=== PATIENT | male | born 1930 | race Caucasian/White ===

== ENCOUNTER → 2018-06-14 | Outpatient (CLI) | payer MEDICARE ==
[2015-03-25 07:42] VITALS: BP 135/62
[~2018-06-14] MED LIST: Aspirin PO; FINA5TAB4 PO; SIMV10TA PO
--- NOTE | 2018-06-14 11:42 | KCIC ---
Two-view right hip dated 06/14/2018. No comparison available. Clinical data indication: Pain. FINDINGS: 2 views right hip show normal bony alignment. No displaced fracture. Moderate to severe hypertrophic changes of the right hip joint with joint space narrowing and subchondral cystic change. No periostitis or bone destruction. No evidence of fracture. Diffuse vascular calcinosis. IMPRESSION: 1. No acute radiographic abnormality. 2. 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 Electronically signed by: Yuan Wright MD (06/14/2018 11:39 AM) [facility]
== END | disposition home or self-care (01) ==
LOC: KCIC 09:52
PROVIDERS: ATTEND Family Medicine
DX: M16.11 Unilateral primary osteoarthritis, right hip (principal)
CPT/HCPCS: 73502

== ENCOUNTER → 2018-08-05 | Outpatient (CLI) | payer MEDICARE ==
[2015-03-25 07:42] VITALS: BP 135/62
[~2018-08-05] MED LIST changes: +ACET500T68 PO; +ASCO10002 PO; +ASPI-630 PO; +BRIM5DRO3 OS; +DORZ10DR6 OU; +LATA2.5D3 OS; +MELO15TA23 PO; +MULT-658 PO; +VIT1CAPS12 PO
[2018-08-05 09:10] LABS: BASO % 1 % (0-3); EOS # 0.6 x10^3/uL (0.0-0.7); EOS % 7 % (0-3); HEMATOCRIT 43.1 % (39.0-53.0); LYMPH # 1.1 x10^3/uL (1.0-4.8); LYMPH % 12 % (24-48); MEAN CORPUSCULAR HEMOGLOBIN 33 pg (25-35); MEAN CORPUSCULAR HGB CONC 35 g/dL (31-37); MEAN CORPUSCULAR VOLUME 95 fL (79-100); MONO # 0.9 x10^3/uL (0.0-1.1); MONO % 10 % (0-9); NEUT # 6.5 x10^3uL (1.8-7.7); NEUT % 71 % (31-73); PLATELET COUNT 261 x10^3/uL (140-400); RED BLOOD COUNT 4.55 x10^6/uL (4.30-5.70); RED CELL DISTRIBUTION WIDTH 13.4 % (11.5-14.5); WHITE BLOOD COUNT 9.1 x10^3/uL (4.0-11.0)
[2018-08-05 09:20] LABS: ALBUMIN 3.2 g/dL (3.4-5.0); CALCIUM 9.2 mg/dL (8.5-10.1); CREATININE 1.2 mg/dL (0.7-1.3); GFR 57.4; POTASSIUM 4.4 mmol/L (3.5-5.1); PROTHROMBIN TIME PATIENT 14.5 SEC (11.7-14.0)
--- NOTE | 2018-08-05 12:20 | EKG ---
[facility] [address] [place] [address] Test Date: 2018-08-05 Test Time: 12:16:31 Pat Name: TALITA WLOF Department: Patient ID: [id number] Room: Gender: M Environmental Technician: [facility] : 1930 Requested By: TOO BURNS Order Number: [id number] Reading MD: Joshua Kraus Measurements Intervals [place] Rate: 124 P: RI: QRS: 27 QRSD: 78 T: -59 QT: 338 QTc: 490 Interpretive Statements ATRIAL FIBRILLATION,RATE [address]-T WAVE CHANGES Electronically Signed On 08-07-2018 10:46:57 THERMOGRAPH OPERATOR by Joshua Kraus
--- NOTE | 2018-08-05 13:34 | RAD ---
EXAM: Chest, 2 views. HISTORY: Arthroplasty. COMPARISON: 07/09/2018 FINDINGS: 2 views of the chest are obtained. There is no infiltrate, pleural effusion or pneumothorax. The heart is normal in size. There are healed rib fractures. There is a small hiatal hernia. There are calcified granulomas. IMPRESSION: No acute pulmonary finding. Electronically signed by: Gloria Carter MD (08/05/2018 1:30 PM) [place] [id number]
[2018-08-05 14:13] LABS: BILIRUBIN,URINE NEGATIVE (NEG); CLARITY,URINE CLEAR; COLOR,URINE YELLOW; NITRITE,URINE NEGATIVE (NEG); PROTEIN,URINE NEGATIVE (NEG-TRACE)
[2018-08-05 14:14] LABS: BACTERIA,URINE FEW /HPF (0-FEW); RBC,URINE RARE /HPF (0-2); SQUAMOUS EPITHELIAL CELL,UR FEW /LPF; WBC,URINE OCC /HPF (0-4)
== END | disposition home or self-care (01) ==
LOC: SURGPAT 12:33
PROVIDERS: ATTEND Orthopaedic Surgery Sports Medicine
DX: Z01.818 Encounter for other preprocedural examination (principal); M16.11 Unilateral primary osteoarthritis, right hip; I10 Essential (primary) hypertension; J84.10 Pulmonary fibrosis, unspecified; I48.91 Unspecified atrial fibrillation; Z87.81 Personal history of (healed) traumatic fracture
CPT/HCPCS: 36415; 71046; 80048; 81001; 82040; 85025; 85610; 85651; 85730; 87641; 93005

== ENCOUNTER → 2018-08-12 | Outpatient (CLI) | payer MEDICARE ==
[2015-03-25 07:42] VITALS: BP 135/62
--- NOTE | 2018-08-12 11:14 | CARD ---
MR#: [id number] Date of Study: 08/12/2018 Ordering Physician: LETTY CRUZ, Referring Physician: LETTY CRUZ Tech: Yoselyn Page RDCS APPROVED REPORT EXAM: Two-dimensional and M-mode echocardiogram with Doppler and color Doppler. Other Information Quality : AverageHR: 97bpm Rhythm : Atrial Fibrillation INDICATION Atrial Fibrillation 2D DIMENSIONS RVDd3.1 (2.9-3.5cm)Left Atrium(2D)5.3 (1.6-4.0cm) IVSd1.4 (0.7-1.1cm)Aortic Root(2D)3.7 (2.0-3.7cm) LVDd4.1 (3.9-5.9cm)LVOT Diameter2.1 (1.8-2.4cm) PWd1.0 (0.7-1.1cm)LVDs2.9 (2.5-4.0cm) FS (%) 27.3 %SV38.8 ml LVEF(%)53.6 (>50%) M-Mode DIMENSIONS Left Atrium(MM)5.46 (2.5-4.0cm)Aortic Root3.98 (2.2-3.7cm) Aortic Valve AoV Peak Elroy.104.7cm/sAoV VTI17.4cm AO Peak GR.4.4mmHgLVOT Peak Elroy.72.5cm/s AO Mean GR.2mmHgAVA (VMAX)2.51cm2 MARIELENA (VTI)2.50cm2 Mitral Valve MV E Repduybn731.7cm/sMV DECEL TNXQ727eb MV A Gdinrfjc33.5cm/sE/A Ratio5.4 Pulmonary Valve PV Peak Cwpadeon90.6cm/s Tricuspid Valve TR P. Twaewvgq007zv/sRAP KTGUSDKJ0maTe TR Peak Gr.55oqDeUTMI02jpSf LEFT VENTRICLE The left ventricle is normal size. Proximal septal thickening is noted. The left ventricular systolic function is normal. The Ejection Fraction is 60%. There is normal LV segmental wall motion. RIGHT VENTRICLE The right ventricle is normal size. There is normal right ventricular wall thickness. The right ventr icular systolic function is normal. ATRIA The left atrium is moderately dilated. The right atrium is moderately dilated. The interatrial septum is intact with no evidence for an atrial septal defect or patent foramen ovale as noted on 2-D or Do ppler imaging. AORTIC VALVE The aortic valve is calcified but opens well. The aortic valve is trileaflet. Doppler and Color Flow revealed no significant aortic regurgitation. There is no significant aortic valvular stenosis. MITRAL VALVE The mitral valve is normal in structure and function. There is no evidence of mitral valve prolapse. There is no mitral valve stenosis. Doppler and Color-flow revealed trace mitral regurgitation. TRICUSPID VALVE The tricuspid valve is normal in structure and function. Doppler and Color Flow revealed trace to mil d tricuspid regurgitation. There is moderate pulmonary hypertension. The PA pressure was estimated at 53 mmHg. There is no tricuspid valve prolapse or vegetation. There is no tricuspid valve stenosis. PULMONIC VALVE The pulmonary valve is normal in structure and function. Doppler and Color Flow revealed trace pulmon ic valvular regurgitation. There is no pulmonic valvular stenosis. GREAT VESSELS The aortic root is mildly enlarged. The ascending aorta is Mildly dilated. The IVC is normal in size and collapses >50% with inspiration. PERICARDIAL EFFUSION There is no evidence of significant pericardial effusion. Critical Notification Critical Value: No <Conclusion> The left ventricular systolic function is normal. The Ejection Fraction is 60%. There is normal LV segmental wall motion. The left atrium is moderately dilated. Trace mitral regurgitation. Trace to mild tricuspid regurgitation. There is moderate pulmonary hypertension. The PA pressure was estimated at 53 mmHg. There is no evidence of significant pericardial effusion. Signed by : Ganga Ritter, Electronically Approved : 08/12/2018 11:12:25
== END | disposition home or self-care (01) ==
LOC: ECHO 10:19
PROVIDERS: ATTEND Family Medicine
DX: I48.2 Chronic atrial fibrillation (principal); I27.20 Pulmonary hypertension, unspecified; I07.1 Rheumatic tricuspid insufficiency
CPT/HCPCS: 93306

== ENCOUNTER → 2018-09-11 | Outpatient (CLI) | payer MEDICARE ==
[2015-03-25 07:42] VITALS: BP 135/62
[~2018-09-11] MED LIST changes: +REGADENOSON 0.4 MG/5 ML DISP.SYRIN. IV ONE
--- NOTE | 2018-09-11 12:51 | RAD ---
MR#: [id number] Date of Study: 09/11/2018 Ordering Physician: LEV CALDERA, Referring Physician: KHRIS VÁZQUEZ Tech: GARCIA Fleming ARRT (R) (N) APPROVED REPORT Test Type: Pharmacological Stress Nurse/Tech: Sonya Miramontes R.N./Rafaela Parnell RN Test Indications: Afib Cardiac History: High cholesterol, Hypertension, TIA Medications: See Electronic Medical Record Medical History: See Electronic Medical Record Resting ECG: Afib/Aflutter Resting Heart Rate: 102 bpm Resting Blood Pressure: 124/74mmHg Pretest Chest Pain: No chest pain Nurse/Tech Notes Lungs CTA, Heart rate irregular. Consent: The procedure was explained to the patient in lay terms. Informed consent was witnessed. Vipul eout was entered into [employer]. History and Stress Test performed by RT Coty (R) (N) Pharm. Details Pharmacologic stress testing was performed using 0.4mg per 5ml of regadenoson given intravenously ove r 7-10 seconds. Stress Symptoms Dyspnea, Flushing, Nausea, Dizziness, Fatigue, Hypotension POST EXERCISE Reason for Termination: Infusion complete Max HR: 131 bpm Max Blood Pressure: 111/78mmHg Chest Pain: No. Arrhythmia: No. ST Change: No. INTERPRETATION Stress EKG Conclusion: Baseline EKG showed atrial fibrillation. No ischemic changes at peak stress. Imaging Protocol IMAGE PROTOCOL: Rest Tc-99m/stress Tc-99m 1 day Rest: Stress: Viability: Radiopharm.Tc99m CemjxesilEb80g Sestamibi Wvqv59oOb 33mCi Img Date 09/11/2018 09/11/2018 Rest Admin Site:IV - Right AntecubitalAdministrator:GARCIA Fleming ARRT (R)(N) Stress Admin Site: IV - Right AntecubitalAdministrator: GARCIA Fleming ARRT (R)(N) STRESS DATA End Diast. Vol.36.0mlLVEDV index BSA17.0ml End Syst. Vol.11.0mlLVESV index BSA5.0ml Myocardial Mass78.0gEject. Qsisccnr81.0% Stress Scores Regional WT3.00Summed WT27.00 Regional WM0.00Summed WM9.00 Study quality was good. Left Ventricular size was Normal at Rest and Stress. Lung uptake was . Left Ventricular ejection fraction is 63%. The rest and stress images show normal perfusion, normal contraction and thickening. LV Perf. Quant 17 Seg. SSS0.00 17 Seg. SRS1.00 17 Seg. SDS0.00 Stress Defect Extent (% LAD)0.00Rest Defect Extent (% LAD)0.00Rev. Defect Extent (% LAD)0.00 Stress Defect Extent (% LCX) 8.80Rest Defect Extent (% LCX)11.30Rev. Defect Extent (% LCX)0.00 Stress Defect Extent (% RCA)0.00Rest Defect Extent (% RCA)0.00Rev. Defect Extent (% RCA)0.00 Stress Defect Extent (% XI)1.50Rest Defect Extent (% XI)2.60Rev. Defect Extent (% XI)0.00 Conclusion 1. Regadenoson cardioisotope stress test did not show any evidence of ischemia or infarct. 2. Normal left ventricular systolic function with ejection fraction calculated at 63%. 3. Low risk for cardiac events. Signed by : Ganga Ritter, Electronically Approved : 09/11/2018 12:48:49
== END | disposition home or self-care (01) ==
LOC: NM 07:24
PROVIDERS: ATTEND Internal Medicine Cardiovascular Disease
DX: I48.1 Persistent atrial fibrillation (principal); E78.2 Mixed hyperlipidemia; I10 Essential (primary) hypertension; E78.00 Pure hypercholesterolemia, unspecified
CPT/HCPCS: 78452; 93017; 96374; A9500; J2785

== ENCOUNTER → 2018-10-15 | Outpatient (CLI) | payer MEDICARE ==
[2015-03-25 07:42] VITALS: BP 135/62
[~2018-10-15] MED LIST changes: +DOCU-109 PO; +FURO20TA3 PO; +METO-239 PO; -REGADENOSON 0.4 MG/5 ML DISP.SYRIN. IV ONE; +RIVA20TA2 PO; +TRAM50TA PO; +WARF-31 PO
[2018-10-15 10:53] LABS: BASO # 0.1 x10^3/uL (0.0-0.2); BASO % 1 % (0-3); EOS # 0.3 x10^3/uL (0.0-0.7); EOS % 5 % (0-3); HEMATOCRIT 42.8 % (39.0-53.0); HEMOGLOBIN 14.5 g/dL (13.0-17.5); LYMPH # 1.1 x10^3/uL (1.0-4.8); LYMPH % 16 % (24-48); MEAN CORPUSCULAR HEMOGLOBIN 32 pg (25-35); MEAN CORPUSCULAR HGB CONC 34 g/dL (31-37); MEAN CORPUSCULAR VOLUME 94 fL (79-100); MONO # 0.8 x10^3/uL (0.0-1.1); MONO % 12 % (0-9); NEUT # 4.6 x10^3uL (1.8-7.7); NEUT % 67 % (31-73); PLATELET COUNT 202 x10^3/uL (140-400); RED BLOOD COUNT 4.54 x10^6/uL (4.30-5.70); RED CELL DISTRIBUTION WIDTH 13.5 % (11.5-14.5); WHITE BLOOD COUNT 6.8 x10^3/uL (4.0-11.0)
[2018-10-15 11:06] LABS: PROTHROMBIN TIME PATIENT 23.3 SEC (11.7-14.0)
[2018-10-15 11:53] LABS: ALBUMIN 3.3 g/dL (3.4-5.0); CALCIUM 8.8 mg/dL (8.5-10.1); CREATININE 1.4 mg/dL (0.7-1.3); GFR 48.1; POTASSIUM 3.8 mmol/L (3.5-5.1)
[2018-10-15 12:52] LABS: BILIRUBIN,URINE NEGATIVE (NEG); CLARITY,URINE CLEAR; COLOR,URINE YELLOW; NITRITE,URINE NEGATIVE (NEG); PH,URINE 5.5; PROTEIN,URINE NEGATIVE (NEG-TRACE)
[2018-10-15 12:58] LABS: BACTERIA,URINE FEW /HPF (0-FEW); SQUAMOUS EPITHELIAL CELL,UR FEW /LPF
[2018-10-15 12:59] LABS: HYALINE CASTS, URINE OCCASIONAL /HPF; RBC,URINE 0 /HPF (0-2)
--- NOTE | 2018-10-16 14:36 | NUR ---
FAXED PRE - OP TEST REPORTS FOR REVIEW AND 'S CARDIAC CLEARANCE NOTES TO 'S OFFICE AT 1309 AND 'S OFFICE AT 1303 10/16/2018 AND RECEIVED TRANSMITTAL CONFIRMATIONS.
== END | disposition home or self-care (01) ==
LOC: SURGPAT 09:56
PROVIDERS: ATTEND Orthopaedic Surgery Sports Medicine
DX: Z01.818 Encounter for other preprocedural examination (principal); I10 Essential (primary) hypertension; E78.5 Hyperlipidemia, unspecified; I48.1 Persistent atrial fibrillation
CPT/HCPCS: 36415; 80048; 81001; 82040; 85025; 85610; 85651; 85730; 87641

== ENCOUNTER 2018-10-28 05:59 | Inpatient (IN) | payer MEDICARE ==
[2018-10-28] VITALS (11 sets, daily range): BP systolic 91–158; BP diastolic 55–80
[~2018-10-28] VITALS: Ht 180.3 cm; Wt 99.0 kg
[~2018-10-28 05:59] MED LIST changes: -DOCU-109 PO; -TRAM50TA PO; -WARF-31 PO
[2018-10-28] MEDS ORDERED: MORPHINE SULFATE 5 MG, KETOROLAC 30MG VIAL 30 MG, ROPIVacaine 0.5% PF 60 ML, EPINEPHrin... INT ART ONE ×5 (06:00)
[2018-10-28] MEDS ORDERED: WARF-31 PO (06:34)
[2018-10-28] MEDS ORDERED: ACETAMINOPHEN 500 MG TABLET PO ONE ×2 (06:51→07:00)
[2018-10-28] MEDS ORDERED: HYDROmorphone 2 MG/ML VIAL IV PRN (07:00)
[2018-10-28] MEDS ORDERED: LIDOCAINE 1% PF 2 ML VIAL. ID PRN (07:00)
[2018-10-28] MEDS ORDERED: fentaNYL PF VIAL 100 MCG/2 ML VIAL IV PRN ×2 (07:00→07:15)
[2018-10-28] MEDS ORDERED: PROCHLORPERAZINE 10 MG/2 ML VIAL. IV PRN (07:00)
[2018-10-28] MEDS ORDERED: IV RINGERS,LACTATED 1000ML 1,000 ML IV SCH (07:00)
[2018-10-28] MEDS ORDERED: ONDANSETRON PF 4 MG/2 ML VIAL. IV PRN (07:00)
[2018-10-28] MEDS ORDERED: FAMOTIDINE 20 MG/2 ML VIAL ONE (07:12)
[2018-10-28] MEDS ORDERED: ROCURONIUM 50 MG/5 ML VIAL. ONE (07:12)
[2018-10-28] MEDS ORDERED: LIDOCAINE 2% PF 5 ML VIAL. ONE (07:12)
[2018-10-28] MEDS ORDERED: fentaNYL PF VIAL 100 MCG/2 ML VIAL ONE (07:12)
[2018-10-28] MEDS ORDERED: PROPOFOL 20 ML IV ONE (07:12)
[2018-10-28] MEDS ORDERED: DEXAMETHASONE SOD PHOS 20 MG/5 ML VIAL. ONE (07:12)
[2018-10-28] MEDS ORDERED: ONDANSETRON PF 4 MG/2 ML VIAL. ONE (07:12)
[2018-10-28] MEDS ORDERED: GLYCOPYRROLATE 1 MG/5 ML VIAL. ONE ×2 (07:12→08:43)
[2018-10-28] MEDS ORDERED: diphenhydrAMINE 50 MG/ML VIAL IV PRN (07:15)
[2018-10-28] MEDS ORDERED: 0.9 % SODIUM CHLORIDE 10 ML DISP.SYRIN. IV PRN (07:15)
[2018-10-28] MEDS ORDERED: PROCHLORPERAZINE 5 MG TABLET. PO PRN (07:15)
[2018-10-28] MEDS ORDERED: DEXTROSE 50% 25 GM / 50ML DISP.SYRIN. IV PRN (07:15)
[2018-10-28] MEDS ORDERED: ZOLPIDEM 5 MG TABLET. PO PRN (07:15)
[2018-10-28] MEDS ORDERED: MORPHINE SULFATE 2 MG/ML VIAL. IV PRN (07:15)
[2018-10-28] MEDS ORDERED: METOCLOPRAMIDE HCL 10 MG/2 ML VIAL. IV PRN (07:15)
[2018-10-28] MEDS ORDERED: oxyCODONE IR 5 MG TABLET PO PRN (07:15)
[2018-10-28 07:23] LABS: PROTHROMBIN TIME PATIENT 14.1 SEC (11.7-14.0)
[2018-10-28] MEDS ORDERED: PHENYLEPHRINE 10 MG/ML VIAL. ONE (07:49)
[2018-10-28] MEDS ORDERED: PHENYLEPHRINE in 0.9% NACL PF 1 MG/10 ML SYRINGE. IV ONE (07:52)
[2018-10-28] MEDS ORDERED: NEOSTIGMINE METHYLSULFATE 5 MG/5 ML SYRINGE. ONE (08:43)
[2018-10-28] MEDS ORDERED: SEVOFLURANE > 120 MINUTES. IH ONE (09:11)
--- NOTE | 2018-10-28 09:22 | PDOC4 ---
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 Findings: Advanced primary degenerative joint disease of right hip. Blood loss: 200 mL Complications: None Components inserted Delgado and nephew 58 mm R3 shell with a 20 posteriorly directed liner, size 11 standard offset anthology stem with a 40+8 cobalt chrome head Reason for procedure: Patient is a very pleasant individual with severe progressive pain interfering with his activities of daily living and attributable to the above preoperative diagnosis. Clinical and radiographic examination were consistent with the above preoperative diagnosis and after discussion of the risks, benefits, and alternatives, taking into account his failure of conservative therapies, the patient elected to proceed with surgery. Description of procedure: Patient was greeted in the preoperative area by myself where the correct extremity was verified and marked. He was taken back to the operative suite and antibiotics were started as they were brought back. Once in the operative room, patient was transferred gently supine to the operating table and secured to the bed with all pressure points padded. Axillary roll was used. The down leg was padded at the fibular head and heel. Patient was secured the bed with our hip positioning devices. I then appreciated leg lengths in this position. After this, the operative extremity was prepped and draped in her usual sterile fashion including an Ioban Coker. We then proceeded to conduct our standard preoperative timeout. I then palpated and marked surface anatomy and sera a line from my standard posterolateral skin incision. Skin was incised with a scalpel and subcutaneous tissue was dissected down the level of fascia with electrocautery. Bleeders were cauterized as they were encountered. Mosher elevator was used to sweep aside adherent subcutaneous tissue for later identification and repair of the fascia. Fascia was then incised in line with the skin incision and the gluteus darian was split bluntly in line with its fibers. There was abundant fibrotic tissue present and I excised some of this for exposure. After this, a lap was used to push bursal tissue posteriorly to identify the piriformis and quadratus, these were taken down, the piriformis was tagged for later repair. Our self- retaining retractor was in place. At this point, identified the hip capsule incised in a T-type incision, taking ends for later repair. The hip was dislocated. I then palpated and marked with electrocautery areas at the greater and lesser trochanters and center of the femoral head and I made measurements for length and offset. I then sera a line on the neck about 1 cm proximal lesser trochanter and made my neck cut through this. The bony remnant was delivered from the operative field. We placed our acetabular retractors and inspected the acetabulum. I excised the soft tissues from the floor the acetabulum as well as the labrum. Osteophytes were taken down posteriorly. After this, we began reaming and reamed down until we encountered a punctate bleeding bony bed. The operative field and then thoroughly irrigated out. The cup was then impacted referencing [place] anatomy and the crossbar attachment. I had identified the transverse acetabular ligament. After this, I palpated for the posterior column and greater sciatic notch and referenced this to place a screw into the posterior column. The operative field was irrigated again and my polyethylene liner was then impacted in position and confirmed that it was fully seated on circumferential visualization. We then removed our acetabular retractors and used our proximal femoral elevator and repositioned the leg. I used the tonieie cutting osteotome followed by canal finding reamer followed by lateralizing reamer. We then began broaching and broached to the above size and trialed different head and necks, using our measurements as a guide as well. The above sizes gave the best range of motion and stability. After this, the trial components were removed and the canal was thoroughly irrigated. I then impacted my femoral stem into position. We then re-trialed the head sizes and selected the above size. The hip was redislocated and the Pruitt taper region was washed and dried. The femoral head was then gently impacted in position and the acetabulum was inspected and irrigated to make sure was free of debris. After this, the hip was reduced. Excellent range of motion and stability were achieved. I was happy with the leg lengths. We then closed capsule with simple interrupted #2 Ethibond. Piriformis was reapproximated through drill holes. I then injected my periarticular mixture into the danielle-incisional soft tissues below. Fascia was closed was running #2 Quill suture. Inverted interrupted 2-0 Vicryl in a multilayered fashion was used for subcutaneous tissue and running 3- 0 Monocryl for skin. Prior to wound closure, all counts correct 2. No complications. At the conclusion, the hip region was cleansed and dried and our incisional wound vacuum was applied. Patient tolerated surgery well. At the conclusion, they were laid supine and transferred gently supine to the hospital bed and taken to PACU in a stable and extubated condition. Postoperative plan is to admit the patient to the joint center for DVT and antibiotic prophylaxis as well as to begin the rehabilitation and receive likely IV pain medicine. ROYCE BURNS II, MD Oct 28, 2018 09:22
[2018-10-28] MEDS: fentaNYL PF VIAL 100 MCG/2 ML VIAL IV PRN ×2 (09:43→09:56)
[2018-10-28] MEDS ORDERED: ANTI-COAG MONITOR BY PHARMACY. MC PRN (10:15)
[2018-10-28] MEDS: MORPHINE SULFATE 2 MG/ML VIAL. IV PRN ×2 (10:24→10:34)
--- NOTE | 2018-10-28 10:34 | RAD ---
Portable pelvis, 10/28/2018: HISTORY: Postop right hip arthroplasty Comparison is made to a study from 07/09/2018. A right total hip prosthesis has been placed in satisfactory position. There is mild degenerative change at the left hip joint. Scattered arterial calcifications are present. There is no evidence of a retained surgical instrument, needle or radiopaque sponge on this exam. Electronically signed by: Taye Do MD (10/28/2018 10:31 AM) [facility]
[2018-10-28] MEDS: ONDANSETRON ODT 4 MG TAB.RAPDIS. PO SCH ×2 (12:00→17:22)
[2018-10-28] MEDS: IV NORMAL SALINE 1000ML BAG 1,000 ML IV SCH (12:00)
[2018-10-28] MEDS: ONDANSETRON PF 4 MG/2 ML VIAL. IV SCH ×2 (12:00→17:21)
[2018-10-28] MEDS ORDERED: WARFARIN 7.5 MG TABLET. PO ONE (16:00)
[2018-10-28] MEDS: RIVAROXABAN 10 MG TABLET. PO SCH (17:20)
[2018-10-28] MEDS: FERROUS SULFATE 325 MG TABLET. PO SCH (17:20)
[2018-10-28] MEDS: METOPROLOL TART IMMED RELEASE 25 MG TABLET. PO SCH (21:00)
[2018-10-28] MEDS: LATANOPROST 0.005% OPHTH SOLUTION 2.5ML BOTTLE. OS SCH (21:15)
[2018-10-28] MEDS: BRIMONIDINE 0.2% OPHTH SOLUTION 5ML BOTTLE. OS SCH (21:15)
[2018-10-28] MEDS: CALCIUM CARBONATE 500 MG TAB.CHEW PO PRN (21:16)
[2018-10-28] MEDS: SIMVASTATIN 10 MG TABLET PO SCH (21:20)
[2018-10-28] MEDS: ACETAMINOPHEN 500 MG TABLET PO SCH (21:55)
[2018-10-29 03:00] VITALS: BP 106/48
[2018-10-29] MEDS: ACETAMINOPHEN 500 MG TABLET PO SCH ×4 (04:36→21:58)
[2018-10-29] MEDS ORDERED: MAGNESIUM HYDROXIDE 2,400 MG/30 ML ORAL.SUSP. PO PRN (06:00)
[2018-10-29 07:00] VITALS: BP 106/55
[2018-10-29] MEDS: ONDANSETRON ODT 4 MG TAB.RAPDIS. PO SCH ×2 (07:00)
[2018-10-29] MEDS: ONDANSETRON PF 4 MG/2 ML VIAL. IV SCH ×2 (07:00)
[2018-10-29 07:52] LABS: HEMATOCRIT 32.5 % (39.0-53.0); HEMOGLOBIN 11.1 g/dL (13.0-17.5)
--- NOTE | 2018-10-29 08:10 | PDOC ---
ORTHO PROGRESS NOTES Subjective Urinary difficulties, not unusual for him. Pain tolerable Vitals Vital Signs Date Time Temp Pulse Resp B/P (MAP) Pulse Ox O2 Delivery O2 Flow Rate FiO2 10/29/18 03:00 98.2 85 18 106/48 (67) 96 Room Air 98.2 10/28/18 14:00 1.0 Labs Laboratory Tests Test 10/28/18 06:44 10/29/18 06:45 Prothrombin Time 14.1 SEC (11.7-14.0) Prothromb Time International Ratio 1.1 (0.8-1.1) Activated Partial Thromboplast Time 38 SEC (24-38) Hemoglobin 11.1 g/dL (13.0-17.5) Hematocrit 32.5 % (39.0-53.0) Mean Corpuscular Hemoglobin Concent 34 g/dL (31-37) Laboratory Tests Test 10/29/18 06:45 Hemoglobin 11.1 g/dL (13.0-17.5) Hematocrit 32.5 % (39.0-53.0) Mean Corpuscular Hemoglobin Concent 34 g/dL (31-37) Notes Walking in room with walker incision ok normal m/s distally Assessment and Plan [facility] if requires straight cath TOO BURNS II, MD Oct 29, 2018 08:10
[2018-10-29] MEDS: FUROSEMIDE 20 MG TABLET PO SCH (09:52)
[2018-10-29] MEDS: SENNOSIDES/DOCUSATE 8.6/50MG TABLET. PO SCH (09:52)
[2018-10-29] MEDS: MULTIVITAMIN with MINERAL TABLET. PO SCH (09:52)
[2018-10-29] MEDS: TAMSULOSIN 0.4 MG CAP.ER.24H. PO SCH ×2 (09:52→21:00)
[2018-10-29] MEDS: METOPROLOL TART IMMED RELEASE 25 MG TABLET. PO SCH ×2 (09:53→21:00)
[2018-10-29] MEDS: DORZOLAMIDE 2% OPHTH SOLUTION 10ML BOTTLE. OU SCH (09:53)
[2018-10-29] MEDS: BRIMONIDINE 0.2% OPHTH SOLUTION 5ML BOTTLE. OS SCH ×2 (09:53→22:06)
[2018-10-29] MEDS: FERROUS SULFATE 325 MG TABLET. PO SCH ×2 (09:53→16:50)
[2018-10-29] MEDS: FINASTERIDE 5 MG TABLET. PO SCH (09:54)
[2018-10-29] MEDS: CALCIUM CARBONATE 500 MG TAB.CHEW PO PRN (11:17)
[2018-10-29] MEDS ORDERED: ONDANSETRON PF 4 MG/2 ML VIAL. IV PRN (12:00)
[2018-10-29] MEDS ORDERED: ONDANSETRON ODT 4 MG TAB.RAPDIS. PO PRN (12:00)
[2018-10-29] MEDS: IV NORMAL SALINE 1000ML BAG 1,000 ML IV SCH (12:00)
[2018-10-29] MEDS ORDERED: BISACODYL 10 MG SUPP.RECT. PR PRN (16:00)
[2018-10-29] MEDS: RIVAROXABAN 10 MG TABLET. PO SCH (16:51)
[2018-10-29 18:20] VITALS: BP 95/51
[2018-10-29] MEDS: SIMVASTATIN 10 MG TABLET PO SCH (21:58)
[2018-10-29] MEDS: LATANOPROST 0.005% OPHTH SOLUTION 2.5ML BOTTLE. OS SCH (22:06)
[2018-10-30 05:10] LABS: HEMATOCRIT 33.4 % (39.0-53.0); HEMOGLOBIN 11.1 g/dL (13.0-17.5)
[2018-10-30 06:30] VITALS: BP 96/56
[2018-10-30 07:20] VITALS: BP 116/57
[2018-10-30 08:58] LABS: PROTHROMBIN TIME PATIENT 29.6 SEC (11.7-14.0)
[2018-10-30] MEDS: METOPROLOL TART IMMED RELEASE 25 MG TABLET. PO SCH ×2 (09:00→21:21)
[2018-10-30] MEDS: FUROSEMIDE 20 MG TABLET PO SCH (09:00)
[2018-10-30 09:10] VITALS: BP 106/72
[2018-10-30] MEDS: ACETAMINOPHEN 500 MG TABLET PO SCH ×4 (09:13→21:20)
[2018-10-30] MEDS: FERROUS SULFATE 325 MG TABLET. PO SCH ×2 (09:13→17:00)
[2018-10-30] MEDS: FINASTERIDE 5 MG TABLET. PO SCH (09:13)
[2018-10-30] MEDS: SENNOSIDES/DOCUSATE 8.6/50MG TABLET. PO SCH (09:13)
[2018-10-30] MEDS: MULTIVITAMIN with MINERAL TABLET. PO SCH (09:13)
[2018-10-30] MEDS: DORZOLAMIDE 2% OPHTH SOLUTION 10ML BOTTLE. OU SCH (09:21)
[2018-10-30] MEDS: BRIMONIDINE 0.2% OPHTH SOLUTION 5ML BOTTLE. OS SCH ×2 (09:22→21:20)
--- NOTE | 2018-10-30 10:23 | SNU/HH DC ---
DISCHARGE ORDERS DISCHARGE INFORMATION: DISCHARGE DATE: Oct 31, 2018 FINAL DIAGNOSIS Right total hip arthroplasty CONDITION ON DISCHARGE: Stable CODE STATUS: Code Status: Full SENIOR LIVING: SNF STAY <30 DAYS: Yes HOSPICE: HOSPICE: No HOSPICE EVAL & TREAT: No POST DISCHARGE ORDERS: ACTIVITY ORDERS: No restrictions WEIGHT BEARING STATUS: As tolerated DIET AFTER DISCHARGE: Regular WOUND/INCISION CARE: Ice to area for comfort, Keep wound/cast CDI, Do not change dressing FOLLOW-UP: PHYSICIAN FOLLOW-UP: Shreyas in 2 wks TREATMENT/EQUIPMENT ORDERS: Physical Therapy For: Evalulation/Treatment Occupational Therapy For: Evaluation/Treatment DISCHARGE MEDICATIONS: Home Meds Active Scripts Simvastatin (ZOCOR) 10 Mg Tablet, 10 MG PO QHS, #30 CAP Prov:LETTY CRUZ MD 03/25/15 Reported Medications Furosemide (FUROSEMIDE) 20 Mg Tablet, 20 MG PO DAILY for HTN AFIB, TAB 10/15/18 Rivaroxaban (XARELTO) 20 Mg Tablet, 20 MG PO DAILY for AFIB, TAB 10/15/18 Meloxicam (MELOXICAM) 15 Mg Tablet, 15 MG PO DAILY for PAIN, TAB 10/15/18 Metoprolol Succinate (METOPROLOL SUCCINATE ( XL )) 25 Mg Tab.er.24h, 25 MG PO BID for AFIB, #30 TAB 0 Refills 10/15/18 Vit A/Vit C/Vit E/Zinc/Copper (PRESERVISION AREDS SOFTGEL) 1 Each Capsule, 1 EACH PO BID for VISION HEALTH, CAP 08/05/18 Brimonidine Tartrate (ALPHAGAN P) 5 Ml Drops, 1 DROP OS BID for GLAUCOMA, DROP 08/05/18 Latanoprost (LATANOPROST) 2.5 Ml Drops, 1 DROP OS HS for GLAUCOMA, EACH 08/05/18 Dorzolamide Hcl (DORZOLAMIDE HCL) 10 Ml Drops, 1 DROP OU DAILY for GLAUCOMA, DROP 08/05/18 Acetaminophen (ACETAMINOPHEN) 500 Mg Tablet, 500 MG PO PRN Q8HRS PRN for PAIN, TAB 08/05/18 Aspirin (ASPIRIN) 81 Mg Tab.chew, 81 MG PO DAILY for BLOOD THINNER, TAB.CHEW 08/05/18 Multivits-Min/Fa/Lycopene/Lut (CENTRUM SILVER TABLET) 1 Each Tablet, 1 EACH PO DAILY for SUPPLEMENT, TAB 08/05/18 Finasteride (FINASTERIDE) 5 Mg Tablet, 1 TAB PO DAILY, #30 TAB 11 Refills 03/23/15 Discontinued Reported Medications Warfarin Sodium (WARFARIN SODIUM) 5 Mg Tablet, 5 MG PO DAILY for PRE OP, #30 TAB 10/28/18 TOO BURNS II, MD Oct 30, 2018 10:23
--- NOTE | 2018-10-30 10:25 | PDOC ---
ORTHO PROGRESS NOTES Norman Meehan is feeling a lot of fatigue today. He is feeling a little constipated, he has not had a bowel movement. No nausea. He is urinating fine today. He tells me just feels pretty wiped out. He denies any chest pain, trouble breathing, dizziness or lightheadedness. Vitals Vital Signs Date Time Temp Pulse Resp B/P (MAP) Pulse Ox O2 Delivery O2 Flow Rate FiO2 10/30/18 07:20 97.5 60 20 116/57 (76) 93 Room Air 97.5 Labs Laboratory Tests Test 10/29/18 06:45 10/30/18 04:05 10/30/18 04:26 10/30/18 08:22 Hemoglobin 11.1 g/dL (13.0-17.5) 11.1 g/dL (13.0-17.5) Hematocrit 32.5 % (39.0-53.0) 33.4 % (39.0-53.0) Mean Corpuscular Hemoglobin Concent 34 g/dL (31-37) 33 g/dL (31-37) Prothrombin Time 39.0 SEC (11.7-14.0) 29.6 SEC (11.7-14.0) Prothromb Time International Ratio 4.0 (0.8-1.1) 2.8 (0.8-1.1) Glucose (Fingerstick) 97 mg/dL (70-99) Laboratory Tests Test 10/30/18 04:05 10/30/18 04:26 10/30/18 08:22 Hemoglobin 11.1 g/dL (13.0-17.5) Hematocrit 33.4 % (39.0-53.0) Mean Corpuscular Hemoglobin Concent 33 g/dL (31-37) Prothrombin Time 39.0 SEC (11.7-14.0) 29.6 SEC (11.7-14.0) Prothromb Time International Ratio 4.0 (0.8-1.1) 2.8 (0.8-1.1) Glucose (Fingerstick) 97 mg/dL (70-99) Notes He is awake and alert, sitting in a chair, speech is clear. Dressing is intact. Normal motor and sensation are present in his operative extremity. Abdomen is not distended. Assessment and Plan We will check a BMP and ask his primary care provider to assist with his care if there is any abnormalities. He can continue PT as tolerated, but if he does not feel like it today I think that is very reasonable. I do not anticipate that he would be able to go home, I spoke today with he and his about placement in a rehabilitation hospital and they would be agreeable to this. TOO BURNS II, MD Oct 30, 2018 10:25
[2018-10-30 12:10] LABS: CALCIUM 8.5 mg/dL (8.5-10.1); CREATININE 1.3 mg/dL (0.7-1.3); GFR 52.3; POTASSIUM 4.5 mmol/L (3.5-5.1)
[2018-10-30 12:30] VITALS: BP 87/53
[2018-10-30] MEDS ORDERED: traMADol 50 MG TABLET PO PRN (16:15)
--- NOTE | 2018-10-30 17:09 | PATHOLOGY ---
[facility] Accession Number: [id number] . 01 Material submitted: . RIGHT HIP BONE AND SOFT TISSUE . 01 Clinical history: . Degenerative Joint Disease . 02 Diagnosis: Femoral head and neck and separate segments of soft tissue, right hip arthroplasty: - Advanced degenerative arthritis. (JPM/db; 10/30/2018) LBQ/10/30/2018 . 02 Electronically signed: . Augustine Ramirez MD, Pathologist NPI- [id number] . 01 Gross description: . The specimen is received in formalin, labeled "Zoran Pierre, right hip bone and soft tissue", is a femoral head measuring 5.2 x 5.0 x 4.4 cm with attached femoral neck measuring 2.3 cm in length by 5.0 x 3.2 cm. The femoral neck margin is a smooth and composed of trabeculated, brown bone. The femoral head articular surface shows area of eburnation and a fibrous fovea measuring 0.9 x 0.4 x 0.2 cm. Peripheral osteophytes are present. Sectioning reveals thinning of the articular cartilage corresponding to the eburnation. Also within the container are multiple hemorrhagic, pineda-white to yellow fibrous and adipose tissue measuring 4.4 x 3.7 x 1.0 cm in aggregate. Editor House Organ tissue is submitted in A1 after decalcification. (Neck resection margin = inked blue) ([facility]; 10/28/2018) SHS/SHS . 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 02 CPT . 100564, 063782 Specimen Comment: A courtesy copy of this report has been sent to Specimen Comment: [phone], . Specimen Comment: Report sent to / DR CRUZ Specimen Comment: A duplicate report has been generated due to demographic updates. Performed at: [address] [facility] [address], [place] [id number] MD Melo Francisco MD Phone: [phone] Performed at: 02 [facility] [address] [place], [place] [id number] MD Augustine Ramierz MD Phone: [phone]
[2018-10-30] MEDS: RIVAROXABAN 10 MG TABLET. PO SCH (17:14)
[2018-10-30 18:03] VITALS: BP 105/64
[2018-10-30 21:13] VITALS: BP 115/71
[2018-10-30] MEDS: LATANOPROST 0.005% OPHTH SOLUTION 2.5ML BOTTLE. OS SCH (21:19)
[2018-10-30] MEDS: TAMSULOSIN 0.4 MG CAP.ER.24H. PO SCH (21:20)
[2018-10-30] MEDS: SIMVASTATIN 10 MG TABLET PO SCH (21:20)
[2018-10-31] MEDS: ACETAMINOPHEN 500 MG TABLET PO SCH ×2 (03:30→08:08)
[2018-10-31 04:28] LABS: HEMATOCRIT 31.4 % (39.0-53.0); HEMOGLOBIN 10.4 g/dL (13.0-17.5)
[2018-10-31 05:45] VITALS: BP 120/69
[2018-10-31] MEDS: FERROUS SULFATE 325 MG TABLET. PO SCH (08:00)
[2018-10-31] MEDS: SENNOSIDES/DOCUSATE 8.6/50MG TABLET. PO SCH (08:07)
[2018-10-31] MEDS: FINASTERIDE 5 MG TABLET. PO SCH (08:07)
[2018-10-31] MEDS: MULTIVITAMIN with MINERAL TABLET. PO SCH (08:07)
[2018-10-31] MEDS: METOPROLOL TART IMMED RELEASE 25 MG TABLET. PO SCH (08:08)
[2018-10-31] MEDS: FUROSEMIDE 20 MG TABLET PO SCH (08:08)
[2018-10-31] MEDS: DORZOLAMIDE 2% OPHTH SOLUTION 10ML BOTTLE. OU SCH (08:10)
[2018-10-31] MEDS: BRIMONIDINE 0.2% OPHTH SOLUTION 5ML BOTTLE. OS SCH (08:10)
--- NOTE | 2018-10-31 08:48 | PDOC ---
ORTHO PROGRESS NOTES Subjective He feels much better today. No nausea, no vomiting, positive flatus. Still no bowel movement O Vitals Vital Signs Date Time Temp Pulse Resp B/P (MAP) Pulse Ox O2 Delivery O2 Flow Rate FiO2 10/31/18 08:08 83 98/65 10/31/18 08:00 Room Air 10/31/18 05:45 97.3 20 98 97.3 Labs Laboratory Tests Test 10/30/18 04:05 10/30/18 04:26 10/30/18 08:22 10/30/18 11:06 Hemoglobin 11.1 g/dL (13.0-17.5) Hematocrit 33.4 % (39.0-53.0) Mean Corpuscular Hemoglobin Concent 33 g/dL (31-37) Prothrombin Time 39.0 SEC (11.7-14.0) 29.6 SEC (11.7-14.0) Prothromb Time International Ratio 4.0 (0.8-1.1) 2.8 (0.8-1.1) Glucose (Fingerstick) 97 mg/dL (70-99) Sodium Level 139 mmol/L (136-145) Potassium Level 4.5 mmol/L (3.5-5.1) Chloride Level 104 mmol/L (98-107) Carbon Dioxide Level 29 mmol/L (21-32) Anion Gap 6 (6-14) Blood Urea Nitrogen 35 mg/dL (8-26) Creatinine 1.3 mg/dL (0.7-1.3) Estimated GFR (Cockcroft-Gault) 52.3 Glucose Level 126 mg/dL (70-99) Calcium Level 8.5 mg/dL (8.5-10.1) Test 10/31/18 04:00 Hemoglobin 10.4 g/dL (13.0-17.5) Hematocrit 31.4 % (39.0-53.0) Mean Corpuscular Hemoglobin Concent 33 g/dL (31-37) Laboratory Tests Test 10/30/18 11:06 10/31/18 04:00 Sodium Level 139 mmol/L (136-145) Potassium Level 4.5 mmol/L (3.5-5.1) Chloride Level 104 mmol/L (98-107) Carbon Dioxide Level 29 mmol/L (21-32) Anion Gap 6 (6-14) Blood Urea Nitrogen 35 mg/dL (8-26) Creatinine 1.3 mg/dL (0.7-1.3) Estimated GFR (Cockcroft-Gault) 52.3 Glucose Level 126 mg/dL (70-99) Calcium Level 8.5 mg/dL (8.5-10.1) Hemoglobin 10.4 g/dL (13.0-17.5) Hematocrit 31.4 % (39.0-53.0) Mean Corpuscular Hemoglobin Concent 33 g/dL (31-37) Notes He is awake and alert and walking in his room. Incision is clean and dry. Normal motor and sensation are present in his right lower extremity Assessment and Plan Okay to transfer to rehabilitation facility today. Weight-bear as tolerated. Xarelto for anticoagulation TOO BURNS II, MD Oct 31, 2018 08:48
--- NOTE | 2018-10-31 08:50 | PDOC3 ---
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 Brief Hospital Course Allergies Allergies Coded Allergies Type Severity Reaction Last Updated Verified No Known Drug Allergies 10/28/18 No Vital Signs Vital Signs Date Time Temp Pulse Resp B/P (MAP) Pulse Ox O2 Delivery O2 Flow Rate FiO2 10/31/18 08:08 83 98/65 10/31/18 08:00 Room Air 10/31/18 05:45 97.3 20 98 97.3 Lab Results Laboratory Tests Test 10/30/18 04:05 10/30/18 04:26 10/30/18 08:22 10/30/18 11:06 Hemoglobin 11.1 g/dL (13.0-17.5) Hematocrit 33.4 % (39.0-53.0) Mean Corpuscular Hemoglobin Concent 33 g/dL (31-37) Prothrombin Time 39.0 SEC (11.7-14.0) 29.6 SEC (11.7-14.0) Prothromb Time International Ratio 4.0 (0.8-1.1) 2.8 (0.8-1.1) Glucose (Fingerstick) 97 mg/dL (70-99) Sodium Level 139 mmol/L (136-145) Potassium Level 4.5 mmol/L (3.5-5.1) Chloride Level 104 mmol/L (98-107) Carbon Dioxide Level 29 mmol/L (21-32) Anion Gap 6 (6-14) Blood Urea Nitrogen 35 mg/dL (8-26) Creatinine 1.3 mg/dL (0.7-1.3) Estimated GFR (Cockcroft-Gault) 52.3 Glucose Level 126 mg/dL (70-99) Calcium Level 8.5 mg/dL (8.5-10.1) Test 10/31/18 04:00 Hemoglobin 10.4 g/dL (13.0-17.5) Hematocrit 31.4 % (39.0-53.0) Mean Corpuscular Hemoglobin Concent 33 g/dL (31-37) Laboratory Tests Test 10/30/18 11:06 10/31/18 04:00 Sodium Level 139 mmol/L (136-145) Potassium Level 4.5 mmol/L (3.5-5.1) Chloride Level 104 mmol/L (98-107) Carbon Dioxide Level 29 mmol/L (21-32) Anion Gap 6 (6-14) Blood Urea Nitrogen 35 mg/dL (8-26) Creatinine 1.3 mg/dL (0.7-1.3) Estimated GFR (Cockcroft-Gault) 52.3 Glucose Level 126 mg/dL (70-99) Calcium Level 8.5 mg/dL (8.5-10.1) Hemoglobin 10.4 g/dL (13.0-17.5) Hematocrit 31.4 % (39.0-53.0) Mean Corpuscular Hemoglobin Concent 33 g/dL (31-37) Brief Hospital Course Mr. Pierre is a 88 old male who presented to my outpatient orthopedic surgery clinic with complaints of severe and progressive pain that failed conservative therapies including injections. We had a discussion of the risks, benefits, alternatives to total hip arthroplasty and he elected to proceed. He tolerated surgery well cover well from anesthesia in the PACU. He was then taken to the [facility] for care and observation. He did receive PT, OT, DVT and antibiotic prophylaxis. He recovered well from surgery and remained hemodynamically stable and afebrile throughout the hospitalization. Pain was controlled on oral pain medicine at the time of discharge. Good progress was made with therapy throughout the hospitalization, and activities of daily living were accomplished by the patient. He had some postoperative urinary retention early on, this resolved with Flomax and prior to discharge she was having normal bowel and bladder function. The incision was clean dry and intact and the operative extremity had normal motor and sensation. Discharge Information Condition at Discharge: Stable Follow Up: Weeks Disposition/Orders: D/C to Another Facility Scheduled Aspirin (Aspirin) 81 Mg Tab.chew, 81 MG PO DAILY for BLOOD THINNER, (Reported) Entered as Reported by: MICHELLE LIM on 08/05/181524 Last Taken: Unknown Dose on 10/24/18 Last Action: HELD on 10/28/18710 by JASON BURNS MD Brimonidine Tartrate (Alphagan P) 5 Ml Drops, 1 DROP OS BID for GLAUCOMA, ( Reported) Entered as Reported by: MICHELLE LIM on 08/05/181524 Last Taken: Unknown Dose on 10/27/18 Last Action: Converted on 10/28/18710 by JASON BURNS MD Dorzolamide Hcl (Dorzolamide Hcl) 10 Ml Drops, 1 DROP OU DAILY for GLAUCOMA, ( Reported) Entered as Reported by: MICHELLE LIM on 08/05/18 1525 Last Taken: Unknown Dose on 10/28/18 Last Action: Continued on 10/28/18710 by JASON BURNS MD Finasteride (Finasteride) 5 Mg Tablet, 1 TAB PO DAILY, #30 Ref 11 (Reported) Entered as Reported by: RORY SWEENEY on 03/23/15 1241 Last Taken: Unknown Dose on 10/28/18529 Last Action: Continued on 710 by JASON BURNS MD Furosemide (Furosemide) 20 Mg Tablet, 20 MG PO DAILY for HTN AFIB, (Reported) Entered as Reported by: PARTH BRIGGS on 10/15/18 1121 Last Taken: Unknown Dose on 10/27/18 Last Action: Continued on 10/28/18710 by JASON BURNS MD Latanoprost (Latanoprost) 2.5 Ml Drops, 1 DROP OS HS for GLAUCOMA, (Reported) Entered as Reported by: MICHELLE LIM on 08/05/18 1525 Last Taken: Unknown Dose on 10/27/18 Last Action: Converted on 10/28/18710 by JASON BURNS MD Metoprolol Succinate (Metoprolol Succinate ( Xl )) 25 Mg Tab.er.24h, 25 MG PO BID for AFIB, #30 Ref 0 (Reported) Entered as Reported by: PARTH BRIGGS on 10/15/18 1107 Last Taken: Unknown Dose on 10/28/18529 Last Action: Continued on 710 by JASON BURNS MD Multivits-Min/Fa/Lycopene/Lut (Centrum Silver Tablet) 1 Each Tablet, 1 EACH PO DAILY for SUPPLEMENT, (Reported) Entered as Reported by: MICHELLE LIM on 08/05/18 1525 Last Taken: Unknown Dose on 10/27/18 Last Action: HELD on 10/28/18710 by JASON BURNS MD Rivaroxaban (Xarelto) 20 Mg Tablet, 20 MG PO DAILY for AFIB, (Reported) Entered as Reported by: PARTH BRIGGS on 10/15/18 1116 Last Taken: Unknown Dose on 10/24/18 Last Action: Converted on 10/28/18710 by JASON BURNS MD Simvastatin (Zocor) 10 Mg Tablet, 10 MG PO QHS, #30 Prescribed by: LETTY CRUZ on 03/25/15 0839 Last Taken: Unknown Dose on 10/27/18 Last Action: Continued on 10/28/18710 by JASON BURNS MD Vit A/Vit C/Vit E/Zinc/Copper (Preservision Areds Softgel) 1 Each Capsule, 1 EACH PO BID for [facility], (Reported) Entered as Reported by: MICHELLE LIM on 08/05/18 1525 Last Taken: Unknown Dose on 10/27/18 Last Action: HELD on 10/28/18710 by JASON BURNS MD Scheduled PRN Acetaminophen (Acetaminophen) 500 Mg Tablet, 500 MG PO PRN Q8HRS PRN for PAIN, ( Reported) Entered as Reported by: MICHELLE LIM on 08/05/18 1525 Last Taken: Unknown Dose on 10/27/18 Last Action: HELD on 10/28/18710 by JASON BURNS MD Discontinued Medications Meloxicam (Meloxicam) 15 Mg Tablet, 15 MG PO DAILY for PAIN, (Reported) Entered as Reported by: PARTH BRIGGS on 10/15/18 1107 Last Taken: Unknown Dose on 10/28/18 0530 Last Action: HELD on 10/28/18710 by JASON BURNS MD Warfarin Sodium (Warfarin Sodium) 5 Mg Tablet, 5 MG PO DAILY for PRE OP, #30 ( Reported) Discontinued Reason: ON XARELTO Entered as Reported by: MOISES RICKS on 10/28/18 0634 Last Taken: Unknown Dose on 10/27/18 1700 Last Action: Discontinued on 154 by MELLISSA JARRELL [facility] Patient Instructions Patient Instructions He'll be transferred to rehabilitation. Weight-bear as tolerated. He will resume his prior outpatient anticoagulation. He should follow up with me in 2 weeks, sooner should a problem arise. TOO BURNS II, MD Oct 31, 2018 08:50
[2018-10-31] MEDS ORDERED: TRAM50TA PO (11:12)
[2018-10-31] MEDS ORDERED: DOCU-109 PO (11:13)
[2018-10-31 14:40] VITALS: BP 129/67
== END 2018-10-31 14:45 | DRG 470 ==
LOC: OPSVCIP 05:59 → 4 NORTH 11:03 → 4 SOUTHEST 10-29 11:11
PROVIDERS: ADMIT Orthopaedic Surgery Sports Medicine; ATTEND Orthopaedic Surgery Sports Medicine
PROC: 0SR902Z Replacement of Right Hip Joint with Metal on Polyethylene Synthetic Substitute, Open Approach (ICD-10-PCS; principal; 2018-10-28 07:30)
DX: M16.11 Unilateral primary osteoarthritis, right hip (principal); K59.00 Constipation, unspecified; R33.9 Retention of urine, unspecified; Z96.653 Presence of artificial knee joint, bilateral
CPT/HCPCS: 36415; 72170; 80048; 82962; 85014; 85018; 85610; 85730; 86850; 86900; 86901; 88304; 88311; A7015; J0171; J0696; J1100; J1885; J2001; J2270; J2370; J2405; J2704; J2710; J2795; J3010; J3490; J7030; J7120; Q0162; 97110; 97116; 97530; 97535

== ENCOUNTER → 2018-12-06 | Outpatient (CLI) | payer MEDICARE ==
[~2018-12-06] MED LIST changes: +DOCU-109 PO; +TRAM50TA PO; +WARF-31 PO
--- NOTE | 2018-12-06 15:35 | RAD ---
Bilateral lower extremity arterial ultrasound History: Bilateral leg pain Findings: Multiple grayscale, color, and duplex spectral analysis sonographic images were acquired of the lower extremity arteries bilaterally. There are no previous similar exams. There is demonstrable flow of the runoff vessels bilaterally. There is some scattered mild plaque bilaterally. There are triphasic and biphasic waveforms bilaterally. No definitive focal stenosis is demonstrated. There is increasing velocity comparing the anterior tibial artery and dorsalis pedis artery. Velocities in cm/sec: RIGHT Common femoral artery 89 Profunda femoris artery 53 Proximal SFA 100 Mid SFA 86 Distal SFA 64 Popliteal artery 48 Posterior tibial artery 51 proximally and 73 distally Peroneal artery 37 Anterior tibial artery 51 Dorsalis pedis artery 26 LEFT: Common femoral artery 89 Profunda femoris artery 53 Proximal SFA 85 Mid SFA 108 Distal SFA 60 Popliteal artery 99 Posterior tibial artery 32 proximally and 37 distally Peroneal artery 67 Anterior tibial artery 53 Dorsalis pedis artery 129 Impression: 1. There is scattered mild plaque. No significant focal stenosis or vessel occlusion is demonstrated. There is probably a greater degree of vessel narrowing of the more distal left anterior tibial artery. Electronically signed by: Danie Daniels MD (12/06/2018 3:32 PM) [id number]
== END | disposition home or self-care (01) ==
LOC: US 13:27
PROVIDERS: ATTEND Internal Medicine Cardiovascular Disease
DX: I70.293 Other atherosclerosis of native arteries of extremities, bilateral legs (principal)
CPT/HCPCS: 93925

== ENCOUNTER → 2020-10-05 | Outpatient (CLI) | payer MEDICARE ==
[~2020-10-05] MED LIST changes: +ASCO100019 PO; -ASCO10002 PO; +PERFLUTREN PROTEIN-A MICROSPHR 0.22 MG/ML 3 ML VIAL. IV ONE
--- NOTE | 2020-10-05 10:38 | CARD ---
MR#: [id number] Date of Study: 10/05/2020 Ordering Physician: LEV CALDERA, Referring Physician: LEV CALDERA, Tech: Ilana Solis [facility] APPROVED REPORT EXAM: Two-dimensional and M-mode echocardiogram with Doppler and color Doppler. Other Information Quality : Technically LimitedHR: 81bpm Rhythm : Atrial Fibrillation INDICATION Atrial Fibrillation Echo Enhancing Agent Indication: Endocardial border delineation Agent/Amount Used: Optison 4mL RISK FACTORS Hypertension Hyperlipidemia 2D DIMENSIONS RVDd3.9 (2.9-3.5cm)Left Atrium(2D)4.9 (1.6-4.0cm) IVSd0.8 (0.7-1.1cm)Aortic Root(2D)3.6 (2.0-3.7cm) LVDd4.6 (3.9-5.9cm)LVOT Diameter2.4 (1.8-2.4cm) PWd1.1 (0.7-1.1cm)LVDs2.8 (2.5-4.0cm) FS (%) 38.2 %SV66.7 ml LVEF(%)68.5 (>50%) Aortic Valve AoV Peak Elroy.106.6cm/sAoV VTI21.0cm AO Peak GR.4.5mmHgLVOT Peak Elroy.65.2cm/s AO Mean GR.2mmHgAVA (VMAX)2.81cm2 Mitral Valve MV E Qvunevqw759.1cm/sMV E Peak Gr.5mmHg MV DECEL [id number] A Zjlsgesh80.3cm/s MV E Mean Gr.2mmHgE/A Ratio2.2 Pulmonary Valve PV Peak Itbqjxjd48.6cm/s Tricuspid Valve TR P. Vzufteiu450og/sTR Peak Gr.39mmHg LEFT VENTRICLE The left ventricle is normal size. There is normal left ventricular wall thickness. The left ventricu lar systolic function is normal. Estimated ejection fraction 55-60%. There is normal LV segmental wa ll motion. RIGHT VENTRICLE The right ventricle is borderline dilated. There is normal right ventricular wall thickness. Systolic function is borderline reduced. ATRIA The left atrium is moderately dilated. The right atrium is moderately dilated. The interatrial septum is intact with no evidence for an atrial septal defect or patent foramen ovale as noted on 2-D or Do ppler imaging. AORTIC VALVE The aortic valve is minimally thickened and opens well. Doppler and Color Flow revealed no significan t aortic regurgitation. There is no significant aortic valvular stenosis. MITRAL VALVE The mitral valve is mildly thickened but opens well. There is no evidence of mitral valve prolapse. T here is no mitral valve stenosis. Doppler and Color-flow revealed mild mitral regurgitation. TRICUSPID VALVE The tricuspid valve is normal in structure and function. Doppler and Color Flow revealed mild tricusp id regurgitation. Estimated PAP 42 mmHg. There is no tricuspid valve stenosis. PULMONIC VALVE The pulmonary valve is normal in structure and function. Doppler and Color Flow revealed mild pulmoni c valvular regurgitation. GREAT VESSELS The aortic root is mildly enlarged. The IVC is normal in size and collapses >50% with inspiration. PERICARDIAL EFFUSION There is no evidence of significant pericardial effusion. Critical Notification Critical Value: No <Conclusion> The left ventricular systolic function is normal. Estimated ejection fraction 55-60%. There is normal LV segmental wall motion. Moderate biatrial dilation. Mild mitral regurgitation. Mild tricuspid regurgitation. Estimated PAP 42 mmHg. There is no evidence of significant pericardial effusion. Signed by : Ganga Ritter, Electronically Approved : 10/05/2020 10:38:09
== END ==
LOC: ECHO 07:59
PROVIDERS: ATTEND Internal Medicine Cardiovascular Disease
DX: I08.8 Other rheumatic multiple valve diseases (principal); G45.9 Transient cerebral ischemic attack, unspecified
CPT/HCPCS: C8929; Q9956

== ENCOUNTER → 2021-01-05 | Outpatient (CLI) | payer MEDICARE ==
[~2021-01-05] MED LIST changes: -PERFLUTREN PROTEIN-A MICROSPHR 0.22 MG/ML 3 ML VIAL. IV ONE
--- NOTE | 2021-01-05 12:34 | RAD ---
EXAM: Carotid Doppler sonogram. HISTORY: Transient ischemic attack. Atherosclerosis. TECHNIQUE: Kim scale and color Doppler sonographic evaluation of the neck with spectral waveform azalea lysis was performed and static images are submitted for review. FINDINGS: There is mild atherosclerotic plaque involving the proximal internal carotid arteries The peak systolic velocity within the right common carotid artery is 89 cm/sec. The peak systolic narda ocity within the right internal carotid artery is 71 cm/sec and the end diastolic velocity within the right internal carotid artery is 28 cm/sec. The right ICA/CCA ratio is 0.80. The peak systolic velocity within the left common carotid artery is 101 cm/sec. The peak systolic narda ocity within the left internal carotid artery is 75 cm/sec and the end diastolic velocity within the left internal carotid artery is 31 cm/sec. The left ICA/CCA ratio is 0.74. There is normal antegrade flow within both vertebral arteries. IMPRESSION: Doppler findings consistent with less than 50 percent stenosis involving the internal car otid arteries. PQRS Compliance Statement - Stenosis calculations for CT, MR and conventional angiography are based u [place] measurement of the distal ICA diameter in accordance with the NASCET methodology. Stenosis calcu lations for carotid ultrasound studies are derived from validated velocity criteria which are known t o correlate with the NASCET methodology. Electronically signed by: Gloria Carter MD (01/05/2021 12:31 PM) [id number]
== END ==
LOC: US 09:52
PROVIDERS: ATTEND Internal Medicine Cardiovascular Disease
DX: I65.23 Occlusion and stenosis of bilateral carotid arteries (principal)
CPT/HCPCS: 93880